=== PATIENT | female | born 1940 | race Caucasian/White ===

== ENCOUNTER → 2017-05-09 | Outpatient (CLI) | payer MEDICARE ==
--- NOTE | 2017-05-09 11:09 | REPMRS ---
Patient History The patient states she had a clinical breast exam in 04/2017. Patient is postmenopausal. Family history of breast cancer in mother at age 75 and breast cancer in maternal aunt at age 40. Benign stereotatic breast biopsy of the left breast. Taking unspecified hormones for 14 years. Digital Woman Screen Mammo: May 09, 2017 - Exam #: [id number] Bilateral CC and MLO view(s) were taken. Technologist: Leesa Cedeno, Technologist Prior study comparison: May 09, 2016, digital woman screen mammo performed at [facility]. May 01, 2015, digital woman screen mammo performed at [facility]. FINDINGS: There are scattered fibroglandular densities. There has been no change in the appearance of the mammogram from the prior studies. There is a mild amount of residual fibroglandular tissue which is fairly symmetric. There is no interval development of dominant mass, architectural distortion, or clustered microcalcification suggestive of malignancy. ASSESSMENT: BI-RADS/ACR category 1 mammogram. Negative. Recommendation Routine screening mammogram in 1 year (for women over age 40). This mammogram was interpreted with the aid of an FDA-approved computer-aided dectection system. Electronically Signed By: South Grewal MD 05/09/17 [id number]
== END ==
LOC: M WHC 09:32
PROVIDERS: ATTEND Nurse Practitioner Women's Health
DX: Z12.31 Encounter for screening mammogram for malignant neoplasm of breast (principal); Z78.0 Asymptomatic menopausal state; Z80.3 Family history of malignant neoplasm of breast; Z92.89 Personal history of other medical treatment

== ENCOUNTER → 2018-05-10 | Outpatient (CLI) | payer MEDICARE | LOC: M WHC 09:32 | DX: Z12.31 Encounter for screening mammogram for malignant neoplasm of breast (principal); Z78.0 Asymptomatic menopausal state; Z80.3 Family history of malignant neoplasm of breast; Z98.890 Other specified postprocedural states; Z92.29 Personal history of other drug therapy | CPT/HCPCS: 77067 ==

== ENCOUNTER → 2019-05-10 | Outpatient (CLI) | payer MEDICARE ==
--- NOTE | 2019-05-10 12:14 | REPMRS ---
Patient History The patient states she had a clinical breast exam in 04/2019. Family history of breast cancer at age 75 in mother, breast cancer at age 40 in maternal aunt. Benign stereotatic breast biopsy of the left breast. Took unspecified hormones for 14 years. 3D TOMOSYNTHESIS WAS PERFORMED. [facility] lifetime risk for breast cancer is 6.8%. Digital Woman Screen Mammo: May 10, 2019 - Exam #: [id number] Bilateral CC and MLO view(s) were taken. Technologist: Leesa Cedeno, Technologist Prior study comparison: May 10, 2018, bilateral digital woman screen mammo performed at [facility]. May 09, 2017, digital woman screen mammo performed at [facility]. FINDINGS: There are scattered fibroglandular densities. There has been no change in the appearance of the mammogram from the prior studies. There is a mild amount of residual fibroglandular tissue which is fairly symmetric. There is no interval development of dominant mass, architectural distortion, or clustered microcalcification suggestive of malignancy. Assessment: BI-RADS/ACR category 1 mammogram. Negative Mammogram. Recommendation Routine screening mammogram in 1 year (for women over age 40). This mammogram was interpreted with the aid of an FDA-approved computer-aided dectection system. Electronically Signed By: South Grewal MD 05/10/19 [id number]
== END ==
LOC: M WHC 10:39
PROVIDERS: ATTEND Nurse Practitioner Women's Health
DX: Z12.31 Encounter for screening mammogram for malignant neoplasm of breast (principal); Z80.3 Family history of malignant neoplasm of breast; Z86.018 Personal history of other benign neoplasm; Z92.29 Personal history of other drug therapy

== ENCOUNTER → 2020-05-11 | Outpatient (CLI) | payer MEDICARE ==
--- NOTE | 2020-05-12 09:50 | REPMRS ---
Patient History The patient states she had a clinical breast exam in April 2020.Family history of breast cancer at age 75 in mother, breast cancer at age 40 in maternal aunt. Benign stereotatic breast biopsy of the left breast. Took unspecified hormones for 14 years. Digital Woman Screen Mammo: May 11, 2020 - Exam #: [id number] Bilateral CC and MLO view(s) were taken. Technologist: Paloma Fraser, Technologist Prior study comparison: May 10, 2019, bilateral digital woman screen mammo performed at [facility]. May 10, 2018, bilateral digital woman screen mammo performed at [facility]. May 09, 2017, digital woman screen mammo performed at [facility]. FINDINGS: There are scattered fibroglandular densities. The Volpara volumetric breast density category is:B. There has been no change in the appearance of the mammogram from the prior studies. There is a mild amount of scattered fibroglandular density which is fairly symmetric. There is no interval development of dominant mass, architectural distortion, or grouped microcalcification suggestive of malignancy. 3-D tomosynthesis shows no additional findings. Assessment: BI-RADS/ACR category 1 mammogram. Negative Mammogram. Recommendation Routine screening mammogram of both breasts in 1 year (for women over age 40). This patient's Lifetime Breast Cancer Risk is estimated at 5.9 %. This mammogram was interpreted with the aid of an FDA-approved computer-aided dectection system. Electronically Signed By: Vick Tapia MD 05/12/20 [id number]
== END ==
LOC: M WHC 10:28
PROVIDERS: ATTEND Nurse Practitioner Women's Health
DX: Z12.31 Encounter for screening mammogram for malignant neoplasm of breast (principal); Z80.3 Family history of malignant neoplasm of breast; Z86.018 Personal history of other benign neoplasm; Z92.29 Personal history of other drug therapy

== ENCOUNTER → 2020-12-11 | Outpatient (CLI) | payer SELFPAY | LOC: M LABSMTC 10:13 | PROVIDERS: ATTEND Pediatrics | DX: Z20.822 Contact with and (suspected) exposure to COVID-19 (principal) ==

== ENCOUNTER → 2021-05-12 | Outpatient (CLI) | payer MEDICARE ==
--- NOTE | 2021-05-12 13:31 | REPMRS ---
Patient History The patient states she had a clinical breast exam in April 2021. Family history of breast cancer at age 75 in mother, breast cancer at age 40 in maternal aunt. Benign stereotatic breast biopsy of the left breast. Took unspecified hormones for 14 years. No breast complaints today Patient signed the MRS sheet 1st covid vaccine 12/29/20-left arm-Moderna 2nd covid vaccine 01/26/21-left arm Priors on PACS Patient Identification Verif Digital Woman Screen Mammo: May 12, 2021 - Exam #: [id number] Bilateral CC and MLO view(s) were taken. Technologist: Jacqui Olmos, Technologist Prior study comparison: May 11, 2020, bilateral digital woman screen mammo performed at [facility]. May 10, 2019, bilateral digital woman screen mammo performed at [facility]. May 10, 2018, bilateral digital woman screen mammo performed at [facility]. FINDINGS: There are scattered fibroglandular densities. The Volpara volumetric breast density category is:B. There is a 7 mm nodular opacity with possible spiculated margins projecting in the lateral aspect of the right breast on the CC view. This is not seen with confidence on the MLO view. This merits further evaluation. There has been no other change in the appearance of the mammogram from the prior studies. There is a mild amount of scattered fibroglandular density which is fairly symmetric. There is no other interval development of dominant mass, architectural distortion, or grouped microcalcification suggestive of malignancy. 3-D tomosynthesis shows no additional findings. Assessment: BI-RADS/ACR category 0 mammogram, Incomplete: Need additional imaging evaluation and/or prior mammograms for comparison. Recommendation Ultrasound and special view mammogram of the right breast. This patient's [facility] Lifetime Breast Cancer Risk is estimated at 5.0 %. This mammogram was interpreted with the aid of an FDA-approved computer-aided dectection system. Electronically Signed By: Vick Tapia MD 05/12/21 [id number]
== END ==
LOC: M WHC 10:45
PROVIDERS: ATTEND Nurse Practitioner Women's Health
DX: Z12.31 Encounter for screening mammogram for malignant neoplasm of breast (principal); Z80.3 Family history of malignant neoplasm of breast; Z86.018 Personal history of other benign neoplasm; Z92.29 Personal history of other drug therapy; N63.10 Unspecified lump in the right breast, unspecified quadrant

== ENCOUNTER → 2021-06-11 | Outpatient (CLI) | payer MEDICARE ==
--- NOTE | 2021-06-11 15:08 | REP ---
INDICATION: ADDITIONAL VIEWS RT BREAST; RIGHT BREAST ADD VIEWS. COMPARISON: Comparison mammography May 12, 2021, May 11, 2020, and May 10, 2019. TECHNIQUE: Magnified focal spot-compression CC MLO and true mL view images of the right breast are obtained. A true mediolateral 3D tomography is carried out and targeted right breast sonography is performed. This mammogram was interpreted with the aid of an FDA-approved computer-aided detection system. FINDINGS: Scattered fibroglandular elements are again seen mammographically. Diagnostic images of the right breast confirm the presence of a nodular lee ann density 6 mm in diameter in the retroareolar region of the anterior 3rd upper outer quadrant at approximately 9 to 10 o'clock position. This is best seen in the craniocaudal projection. The Volpara volumetric breast density pattern is B. Targeted ultrasound: Upper-outer quadrant right breast sonography is performed. 9:00 to 12:00 and retroareolar region. A 5 mm x 2 mm cyst is seen in the retroareolar region of the right breast however the this is not felt to correspond with the mammographic finding. No other sonographic abnormality. IMPRESSION: BIRADS/ACR category 4 suspicious right breast mammographic findings.. No ultrasound correlate for somewhat irregular nodular lee ann density 6 mm in diameter in the upper outer quadrant right breast anterior 3rd. This patient's [facility] lifetime breast cancer risk assessment score is 5.0%. RECOMMENDATION: Stereotactic needle biopsy of the right breast target is recommended with clip placement and post clip placement mammography.. The patient letter being requested is M4. <Electronically signed by Vick Tapia > 06/11/21 [id number]
== END ==
LOC: M WHC 08:19
PROVIDERS: ATTEND Nurse Practitioner Women's Health
DX: R92.8 Other abnormal and inconclusive findings on diagnostic imaging of breast (principal); N60.01 Solitary cyst of right breast
CPT/HCPCS: 76642; 77065; G0279

== ENCOUNTER → 2021-07-01 | Outpatient (CLI) | payer MEDICARE ==
[~2021-07-01] MED LIST: ECOT81TA5 PO; GLYB5TAB6 PO; LIPI20TA PO; LISI20TA33 PO; METF500T13 PO; OMEP10CASR PO; RANI15TA PO; VITAD400CA FT
[2021-07-01 13:57] VITALS: BP 150/76
--- NOTE | 2021-07-01 14:07 | REP ---
INDICATION: R92.8 AFN R BREAST/STEREO BX/CK CLIP PLMT. Marker clip placement views. COMPARISON: Comparison mammography May 12, 2021 and June 11, 2021. TECHNIQUE: Craniocaudal and mediolateral views of the right breast are obtained. FINDINGS: CC and mL views of the right breast demonstrate the needle biopsy marker clip in good position relative to the position of the nodular target on previous images. IMPRESSION: Marker clip in good position right breast. Post stereotactic needle biopsy images. <Electronically signed by Vick Tapia > 07/01/21 5041
--- NOTE | 2021-07-01 21:56 | REP ---
INDICATION: R92.8 AFN R BREAST/STEREO BX/CK CLIP PLMT. COMPARISON: None. TECHNIQUE: The procedure was performed under the direct supervision of Dr. Tapia. The patient has a history of a 6 mm nodular lee ann density in the retroareolar region of the anterior 3rd, upper outer quadrant of the right breast, seen on a previous mammogram dated 06/11/2021. The risks and benefits of the procedure were explained to the patient and informed consent was obtained. A craniocaudal approach was utilized. The nodule was localized using stereotactic mammographic guidance. 9 mL 1% Xylocaine was used as a local anesthetic. A 10 gauge, suction assisted Mammotome needle was inserted and 6 core biopsy samples were obtained. A marker clip(HydroMARK shape 3) was placed at the biopsy site. The patient tolerated the procedure well and there were no immediate complications. After the appropriate amount of monitored convalescence, the patient was discharged from the department. EBL: Less than 3 mL FINDINGS: None IMPRESSION: Stereotactic right breast biopsy with marker clip placement.(HydroMARK shape 3) <Electronically signed by Candido Castillo > 07/01/21 1622 <Electronically signed by Vick Tapia > 07/01/21 [id number]
== END ==
LOC: M WHCPRO 06:34
PROVIDERS: ATTEND Surgery
DX: D24.1 Benign neoplasm of right breast (principal); N63.11 Unspecified lump in the right breast, upper outer quadrant

== ENCOUNTER → 2021-08-06 | Outpatient (CLI) | payer MEDICARE | LOC: M WHC 11:41 | PROVIDERS: ATTEND Surgery | DX: R92.8 Other abnormal and inconclusive findings on diagnostic imaging of breast (principal); N63.20 Unspecified lump in the left breast, unspecified quadrant | CPT/HCPCS: 77065; G0279 ==

== ENCOUNTER → 2021-08-24 | Outpatient (CLI) | payer MEDICARE ==
[2021-08-24 13:57] VITALS: BP 124/72
--- NOTE | 2021-08-24 14:06 | REP ---
INDICATION: ABNORMAL RIGHT MAMMO 6 MM NODULE POST MAMMO FOR CLIP PLACMEN. Marker clip placement views. COMPARISON: Comparison is made with August 06, 2021 mammography. Also reviewed are July 01, 2021 and June 11, 2021 prior studies. TECHNIQUE: Craniocaudal and mediolateral oblique views of the right breast are obtained. FINDINGS: Cc and MLO views of the right breast obtained today demonstrate the newly placed marker clip in the nodular density in the lateral aspect of the right breast anterior 3rd. This is located approximately 3 cm lateral to the 1st clip which was placed previously. Today's clip is felt to be in good position relative to the target visible on the craniocaudal views from August 06, 2021 and June 11, 2021. No hematoma is visualized. IMPRESSION: Marker clip in good position. This mammogram was interpreted with the aid of an FDA-approved computer-aided detection system. <Electronically signed by Vick Tapia > 08/24/21 1410
--- NOTE | 2021-08-24 16:42 | REP ---
INDICATION: ABNORMAL RIGHT MAMMO 6 MM NODULE POST MAMMO FOR CLIP PLACMEN. COMPARISON: None. TECHNIQUE: The procedure was performed under the general supervision of Dr. Tapia. Patient has a history of a 6 mm, irregular, nodular lee ann density in the upper-outer quadrant of the right breast seen on a previous mammogram dated 06/11/2021. The patient had a stereotactic right breast biopsy of this lesion on 07/01/2021. Post biopsy mammogram demonstrated the needle biopsy marker clip to be in good position relative to the position of the nodule targeted on previous images. On a mammogram performed on 08/06/2021, the previously noted 6 mm irregular density is seen lateral to the position of the needle biopsy marker clip placed in the retroareolar region. This is seen only in the craniocaudal view which was the case previously. It is not definitely changed from the 09 May 2017 prior study. This area appeared less conspicuous on the 2018 and 2019 prior studies. In any event this nodular density does not appear to have been sampled. The patient is referred for re-biopsy. The risks and benefits of the procedure were explained to the patient and informed consent was obtained. A craniocaudal approach was utilized. The nodule was localized using stereotactic mammographic guidance. 10 mL 1% Xylocaine was used as a local anesthetic. A 10 gauge, suction assisted Mammotome needle was inserted and 6 core biopsy samples were obtained. Specimen a marker clip(HydroMARK shape 1) was placed at the biopsy site. The patient tolerated the procedure well and there were no immediate complications. After the appropriate amount of monitored convalescence, the patient was discharged from the department. EBL: Less than 3 mL FINDINGS: None IMPRESSION: Stereotactic right breast biopsy.(HydroMARK shape 1) <Electronically signed by Candido Castillo > 08/24/21 8010 <Electronically signed by Vick Tapia > 08/24/21 6571
== END ==
LOC: M WHCPRO 06:51
PROVIDERS: ATTEND Surgery
DX: N60.21 Fibroadenosis of right breast (principal)

== ENCOUNTER → 2022-01-31 | Outpatient (CLI) | payer MEDICARE | LOC: M WHC 09:40 | PROVIDERS: ATTEND Nurse Practitioner Women's Health | DX: R92.8 Other abnormal and inconclusive findings on diagnostic imaging of breast (principal) | CPT/HCPCS: 77065; G0279 ==

== ENCOUNTER → 2022-06-20 | Outpatient (CLI) | payer MEDICARE | LOC: M WHC 10:17 | PROVIDERS: ATTEND Nurse Practitioner Family | DX: Z12.31 Encounter for screening mammogram for malignant neoplasm of breast (principal) ==

== ENCOUNTER → 2023-10-17 | Outpatient (CLI) | payer MEDICARE | LOC: M WHC 10:49 | PROVIDERS: ATTEND Family Medicine | DX: Z12.31 Encounter for screening mammogram for malignant neoplasm of breast (principal); M85.89 Other specified disorders of bone density and structure, multiple sites ==

== ENCOUNTER 2024-08-02 19:04 | Inpatient (IN) | payer MEDICARE ==
[~2024-08-02] VITALS: Ht 157.5 cm; Wt 65.4 kg
[2024-08-02 19:53] LABS: VENOUS BASE EXCESS -16.1 (-2.0-2.0); VENOUS HCO3 12.6 MMOL/L (23.0-27.0); VENOUS O2 SATURATION 61.2 % (60.0-80.0); VENOUS PARTIAL PRESSURE O2 32.3 mmHg (30.0-50.0); VENOUS PH 7.117 UNITS (7.330-7.430); VENOUS STANDARD HCO3 11.8 MMOL/L; VENOUS TOTAL CO2 13.9 MMOL/L (24.0-28.0)
[2024-08-02 19:58] LABS: BASO % 0.2 % (0.0-1.0); HEMATOCRIT 35.4 % (36.0-47.0); HEMOGLOBIN 11.7 g/dl (12.0-15.5); LYMPH # 0.9 10^3/uL (1.5-5.0); LYMPH % 9.9 % (24.0-44.0); MEAN CORPUSCULAR HEMOGLOBIN 30.2 pg (27.0-33.0); MEAN CORPUSCULAR HGB CONC 33.1 g/dl (32.0-36.5); MEAN CORPUSCULAR VOLUME 91.2 fl (80.0-96.0); MONO # 0.5 10^3/uL (0.0-0.8); MONO % 5.6 % (2.0-8.0); NEUTROPHILS # 7.7 10^3/uL (1.5-8.5); PLATELET COUNT, AUTOMATED 327 10^3/uL (150-450); RED BLOOD COUNT 3.88 10^6/uL (4.00-5.40); WHITE BLOOD COUNT 9.2 10^3/uL (4.0-10.0)
[2024-08-02] MEDS: NS 1,000 ML IV SCH (20:03)
[2024-08-02 20:05] LABS: ALBUMIN 3.9 G/DL (3.2-5.2); BILIRUBIN,DIRECT 0.1 MG/DL (<0.4); BILIRUBIN,TOTAL 0.3 MG/DL (0.3-1.2); TOTAL PROTEIN 7.9 G/DL (5.7-8.2)
[2024-08-02 20:14] LABS: ACETONE/KETONE 1.32 MMOL/L (0.02-0.27)
[2024-08-02 20:41] LABS: HEMOGLOBIN A1c 6.6 % (4.0-6.0)
[2024-08-02 21:24] LABS: CALCIUM LEVEL 10.7 MG/DL (8.3-10.6); CREATININE FOR GFR 8.13 MG/DL (0.55-1.30); MAGNESIUM LEVEL 1.4 MG/DL (1.8-2.4); POTASSIUM SERUM 5.3 MMOL/L (3.5-5.1)
[2024-08-02] MEDS: SODIUM BICARBONATE 150 MEQ in D5W 1,000 ML IV SCH (21:35)
[2024-08-02] MEDS: DEXTROSE 50% 50ML SYRINGE IV STA (23:07)
[2024-08-02] MEDS ORDERED: OMEP-173 PO (23:09)
[2024-08-02] MEDS ORDERED: GLIP10TA6 PO (23:09)
[2024-08-02] MEDS ORDERED: METF-838 PO (23:09)
[2024-08-02] MEDS ORDERED: INVO100T PO (23:09)
[2024-08-02] MEDS ORDERED: BYDU2INJ7 INJ (23:09)
[2024-08-02] MEDS ORDERED: GLUC1TAB58 PO (23:12)
[2024-08-02] MEDS ORDERED: [UNRECOGNIZED DRUG - OTHER] PO (23:12)
[2024-08-02] MEDS ORDERED: CALTTAB6 PO (23:12)
[2024-08-02] MEDS ORDERED: ROSU20TA61 PO (23:28)
[2024-08-02] MEDS ORDERED: HOME MED LIST COMPLETE! XX SCH (23:30)
[2024-08-03] MEDS ORDERED: GLUCOSE 4 GM CHEW PO PRN (00:35)
[2024-08-03] MEDS ORDERED: GLUCAGON INJ 1MG VIAL SC PRN (00:35)
[2024-08-03 03:40] LABS: CALCIUM LEVEL 9.7 MG/DL (8.3-10.6); CREATININE FOR GFR 8.2 MG/DL (0.55-1.30); POTASSIUM SERUM 5.1 MMOL/L (3.5-5.1)
[2024-08-03] MEDS: DEXTROSE 50% 50ML SYRINGE IV PRN (05:29)
[2024-08-03 06:07] LABS: HEMOGLOBIN 10.3 g/dl (12.0-15.5); MEAN CORPUSCULAR HGB CONC 34.3 g/dl (32.0-36.5); MEAN CORPUSCULAR VOLUME 87.5 fl (80.0-96.0); PLATELET COUNT, AUTOMATED 264 10^3/uL (150-450); RED BLOOD COUNT 3.43 10^6/uL (4.00-5.40); WHITE BLOOD COUNT 9.7 10^3/uL (4.0-10.0)
[2024-08-03 06:46] LABS: CALCIUM LEVEL 9.3 MG/DL (8.3-10.6); CREATININE FOR GFR 8.31 MG/DL (0.55-1.30); GLOMERULAR FILTRATION RATE 4.9 (>32); MAGNESIUM LEVEL 1.2 MG/DL (1.8-2.4); POTASSIUM SERUM 4.7 MMOL/L (3.5-5.1)
[2024-08-03] MEDS: INSULIN LISPRO (NovoLOG) PER UNIT SC SCH ×2 (07:30→21:00)
[2024-08-03] MEDS: MAG SULF 1GM/100ML (MAG RUN) 1 GM in IV 1 EA IV SCH (08:18)
[2024-08-03] MEDS: SODIUM BICARBONATE 150 MEQ in D5W 1,000 ML IV SCH (09:19)
[2024-08-03] MEDS: HEPARIN SOD (PORCINE) 5000UNITS/ML 1ML VIAL/SYRINGE SC SCH (09:29)
[2024-08-03] MEDS: amLODIPine 5 MG TAB PO ONE (11:27)
[2024-08-03 13:11] LABS: ANTI-STREPTOLYSIN O QUANT 43.1 IU/ML (<195); COMPLEMENT C3 101.1 MG/DL (90.0-170.0); COMPLEMENT C4 28.7 MG/DL (12-36); RHEUMATOID FACTOR QUANT 7.9 IU/ML (<14)
[2024-08-03] MEDS: ACETAMINOPHEN TAB 650MG DOSE (2X325MG) PO PRN (17:43)
[2024-08-03 17:59] VITALS: BP 132/63; TEMP 98.8; O2SAT 96
[2024-08-03 19:52] VITALS: BP 113/55; TEMP 98.1; O2SAT 98
[2024-08-03 23:30] VITALS: BP 112/57; TEMP 98.8; O2SAT 95
[2024-08-04] VITALS (7 sets, daily range): BP systolic 132–157; BP diastolic 60–70; TEMP 97.4–99.3; O2SAT 94–97
[2024-08-04] MEDS: amLODIPine 5 MG TAB PO SCH (08:22)
[2024-08-04] MEDS: FLUBLOK(EGGFREE) TRIVAL(24-25) VACCINE PF 0.5ML SYRINGE 18YRS & OLDER IM.IMMUN ONE (09:00)
[2024-08-04 09:24] LABS: BASO % 0.5 % (0.0-1.0); EOS # 0.1 10^3/uL (0.0-0.5); EOS % 1.3 % (0.0-3.0); HEMATOCRIT 27.2 % (36.0-47.0); HEMOGLOBIN 9.6 g/dl (12.0-15.5); MEAN CORPUSCULAR HEMOGLOBIN 30.4 pg (27.0-33.0); MEAN CORPUSCULAR HGB CONC 35.3 g/dl (32.0-36.5); MEAN CORPUSCULAR VOLUME 86.1 fl (80.0-96.0); MONO # 0.8 10^3/uL (0.0-0.8); MONO % 9.7 % (2.0-8.0); NEUTROPHILS # 4.9 10^3/uL (1.5-8.5); NEUTROPHILS % 62.1 % (36.0-66.0); PLATELET COUNT, AUTOMATED 236 10^3/uL (150-450); RED BLOOD COUNT 3.16 10^6/uL (4.00-5.40); WHITE BLOOD COUNT 7.9 10^3/uL (4.0-10.0)
[2024-08-04] MEDS: NS 1,000 ML IV SCH (09:30)
[2024-08-04 10:19] LABS: CALCIUM LEVEL 8.4 MG/DL (8.3-10.6); CREATININE FOR GFR 8.88 MG/DL (0.55-1.30); GLOMERULAR FILTRATION RATE 4.5 (>32); POTASSIUM SERUM 3.9 MMOL/L (3.5-5.1)
[2024-08-04 11:27] LABS: PROTEIN, URINE AUTO TRACE mg/dL (NEGATIVE)
[2024-08-04 11:54] LABS: CREATININE,RANDOM URINE 22.7 MG/DL
[2024-08-05] VITALS (7 sets, daily range): BP systolic 137–176; BP diastolic 58–80; TEMP 97.5–98.8; O2SAT 94–97
[2024-08-05 08:06] LABS: BASO % 0.6 % (0.0-1.0); EOS # 0.1 10^3/uL (0.0-0.5); EOS % 2.1 % (0.0-3.0); HEMATOCRIT 26.2 % (36.0-47.0); HEMOGLOBIN 8.9 g/dl (12.0-15.5); LYMPH # 1.6 10^3/uL (1.5-5.0); MEAN CORPUSCULAR HEMOGLOBIN 30.1 pg (27.0-33.0); MEAN CORPUSCULAR VOLUME 88.5 fl (80.0-96.0); MONO # 0.8 10^3/uL (0.0-0.8); MONO % 11.4 % (2.0-8.0); NEUTROPHILS # 4.1 10^3/uL (1.5-8.5); NEUTROPHILS % 61.7 % (36.0-66.0); PLATELET COUNT, AUTOMATED 218 10^3/uL (150-450); RED BLOOD COUNT 2.96 10^6/uL (4.00-5.40); WHITE BLOOD COUNT 6.6 10^3/uL (4.0-10.0)
[2024-08-05 08:38] LABS: BLOOD UREA NITROGEN 65 MG/DL (9-23); CALCIUM LEVEL 8.1 MG/DL (8.3-10.6); CARBON DIOXIDE LEVEL 29 MMOL/L (20-31); CHLORIDE LEVEL 101 MMOL/L (98-107); CREATININE FOR GFR 9.04 MG/DL (0.55-1.30); GLOMERULAR FILTRATION RATE 4.4 (>32); GLUCOSE, FASTING 83 MG/DL (74-106); MAGNESIUM LEVEL 1.9 MG/DL (1.8-2.4); POTASSIUM SERUM 4.3 MMOL/L (3.5-5.1); SODIUM LEVEL 137 MMOL/L (136-145)
[2024-08-05] MEDS ORDERED: SODIUM CHLORIDE 0.9% 1000ML IV PRN (10:25)
[2024-08-05] MEDS ORDERED: HEPARIN 1,000UNITS/ML 10ML VIAL (FOR RADIOLOGY & DIALYSIS ONLY) IV PRN (10:25)
[2024-08-05 11:08] LABS: HEPATITIS B SURFACE ANTIBODY NEGATIVE (POSITIVE)
[2024-08-05 11:21] LABS: HEPATITIS B SURFACE ANTIGEN NEGATIVE (NEGATIVE)
[2024-08-05 11:42] LABS: HEPATITIS B CORE ANTIBODY IGM NEGATIVE (NEGATIVE); HEPATITIS C VIRUS ABY INDEX < 0.02 INDEX (<0.8)
[2024-08-05] MEDS: HEPARIN 1,000UNITS/ML 10ML VIAL (FOR RADIOLOGY & DIALYSIS ONLY) XX SCH (14:46)
[2024-08-06] VITALS (8 sets, daily range): BP systolic 131–163; BP diastolic 65–80; TEMP 97.6–99; O2SAT 96–99
[2024-08-06 00:08] LABS: PROTEIN, TOTAL SO 6.2 g/dL (6.1-8.1)
[2024-08-06 05:59] LABS: BASO % 0.4 % (0.0-1.0); EOS # 0.2 10^3/uL (0.0-0.5); EOS % 2.9 % (0.0-3.0); HEMOGLOBIN 9.8 g/dl (12.0-15.5); LYMPH # 1.3 10^3/uL (1.5-5.0); LYMPH % 18.7 % (24.0-44.0); MEAN CORPUSCULAR HEMOGLOBIN 30.1 pg (27.0-33.0); MEAN CORPUSCULAR HGB CONC 33.8 g/dl (32.0-36.5); MONO # 0.7 10^3/uL (0.0-0.8); MONO % 10.2 % (2.0-8.0); NEUTROPHILS # 4.7 10^3/uL (1.5-8.5); NEUTROPHILS % 67.5 % (36.0-66.0); PLATELET COUNT, AUTOMATED 229 10^3/uL (150-450); RED BLOOD COUNT 3.26 10^6/uL (4.00-5.40); WHITE BLOOD COUNT 6.9 10^3/uL (4.0-10.0)
[2024-08-06] MEDS ORDERED: SODIUM CHLORIDE 0.9% 1000ML IV PRN (06:00)
[2024-08-06] MEDS ORDERED: HEPARIN 1,000UNITS/ML 10ML VIAL (FOR RADIOLOGY & DIALYSIS ONLY) IV PRN (06:00)
[2024-08-06] MEDS ORDERED: LIDOCAINE 1% SDV 5ML VIAL SC PRN (06:00)
[2024-08-06 06:33] LABS: CALCIUM LEVEL 8.6 MG/DL (8.3-10.6); CREATININE FOR GFR 5.26 MG/DL (0.55-1.30); GLOMERULAR FILTRATION RATE 8.3 (>32); MAGNESIUM LEVEL 1.8 MG/DL (1.8-2.4)
[2024-08-06] MEDS: amLODIPine 5 MG TAB PO ONE (12:26)
[2024-08-06] MEDS: HEPARIN 1,000UNITS/ML 10ML VIAL (FOR RADIOLOGY & DIALYSIS ONLY) XX SCH (16:48)
[2024-08-07 03:18] VITALS: BP 123/63; TEMP 98.3; O2SAT 97
[2024-08-07 05:41] LABS: BASO % 0.5 % (0.0-1.0); EOS # 0.2 10^3/uL (0.0-0.5); EOS % 2.6 % (0.0-3.0); HEMATOCRIT 29.8 % (36.0-47.0); HEMOGLOBIN 9.9 g/dl (12.0-15.5); LYMPH # 1.5 10^3/uL (1.5-5.0); LYMPH % 25.1 % (24.0-44.0); MEAN CORPUSCULAR HEMOGLOBIN 30.1 pg (27.0-33.0); MEAN CORPUSCULAR HGB CONC 33.2 g/dl (32.0-36.5); MEAN CORPUSCULAR VOLUME 90.6 fl (80.0-96.0); MONO # 0.7 10^3/uL (0.0-0.8); MONO % 11.7 % (2.0-8.0); NEUTROPHILS # 3.6 10^3/uL (1.5-8.5); NEUTROPHILS % 59.8 % (36.0-66.0); PLATELET COUNT, AUTOMATED 248 10^3/uL (150-450); RED BLOOD COUNT 3.29 10^6/uL (4.00-5.40); WHITE BLOOD COUNT 6.1 10^3/uL (4.0-10.0)
[2024-08-07] MEDS ORDERED: HEPARIN 1,000UNITS/ML 10ML VIAL (FOR RADIOLOGY & DIALYSIS ONLY) IV PRN (06:00)
[2024-08-07] MEDS ORDERED: LIDOCAINE 1% SDV 5ML VIAL SC PRN (06:00)
[2024-08-07] MEDS ORDERED: SODIUM CHLORIDE 0.9% 1000ML IV PRN (06:00)
[2024-08-07 06:04] LABS: CALCIUM LEVEL 8.9 MG/DL (8.3-10.6); CREATININE FOR GFR 3.43 MG/DL (0.55-1.30); GLOMERULAR FILTRATION RATE 13.6 (>32); MAGNESIUM LEVEL 1.7 MG/DL (1.8-2.4); POTASSIUM SERUM 3.6 MMOL/L (3.5-5.1)
[2024-08-07 07:47] LABS: ALBUMIN SO 3.4 g/dL (3.8-4.8); ALPHA 1 GLOBULINS SO 0.3 g/dL (0.2-0.3); ALPHA 2 GLOBULINS SO 0.9 g/dL (0.5-0.9); BETA 2 GLOBULIN SO 0.4 g/dL (0.2-0.5); BETA GLOBULIN SO 0.4 g/dL (0.4-0.6); GAMMA GLOBULINS SO 0.9 g/dL (0.8-1.7)
[2024-08-07 08:22] LABS: ANA SCREEN, IFA NEGATIVE (NEGATIVE)
[2024-08-07] MEDS: HEPARIN 1,000UNITS/ML 10ML VIAL (FOR RADIOLOGY & DIALYSIS ONLY) XX SCH (09:43)
[2024-08-07] MEDS: MAG SULF 1GM/100ML (MAG RUN) 1 GM in IV 1 EA IV ONE (13:29)
[2024-08-07 13:37] VITALS: BP 123/60; TEMP 98.4; O2SAT 98
[2024-08-07 16:50] VITALS: BP 131/60; TEMP 97.6; O2SAT 95
[2024-08-07 20:19] VITALS: BP 107/60; TEMP 98.1; O2SAT 97
[2024-08-07 23:38] LABS: COMPLEMENT TOTAL (CH50) 50 U/mL (31-60)
[2024-08-07 23:41] VITALS: BP 136/81; TEMP 98; O2SAT 96
[2024-08-08 04:25] VITALS: BP 127/57; TEMP 98; O2SAT 97
[2024-08-08 06:58] LABS: BASO % 0.5 % (0.0-1.0); EOS # 0.2 10^3/uL (0.0-0.5); EOS % 3.3 % (0.0-3.0); HEMATOCRIT 30.8 % (36.0-47.0); HEMOGLOBIN 10.1 g/dl (12.0-15.5); LYMPH # 1.5 10^3/uL (1.5-5.0); LYMPH % 25.2 % (24.0-44.0); MEAN CORPUSCULAR HEMOGLOBIN 30.1 pg (27.0-33.0); MEAN CORPUSCULAR HGB CONC 32.8 g/dl (32.0-36.5); MEAN CORPUSCULAR VOLUME 91.9 fl (80.0-96.0); MONO # 0.6 10^3/uL (0.0-0.8); MONO % 10.5 % (2.0-8.0); NEUTROPHILS # 3.7 10^3/uL (1.5-8.5); NEUTROPHILS % 60.2 % (36.0-66.0); PLATELET COUNT, AUTOMATED 240 10^3/uL (150-450); RED BLOOD COUNT 3.35 10^6/uL (4.00-5.40); WHITE BLOOD COUNT 6.1 10^3/uL (4.0-10.0)
[2024-08-08 07:23] LABS: CALCIUM LEVEL 9.9 MG/DL (8.3-10.6); CREATININE FOR GFR 2.9 MG/DL (0.55-1.30); GLOMERULAR FILTRATION RATE 16.5 (>32); POTASSIUM SERUM 4.2 MMOL/L (3.5-5.1)
[2024-08-08 08:00] VITALS: BP 153/66; TEMP 97.7; O2SAT 96
[2024-08-08 15:36] VITALS: BP 121/56; TEMP 98; O2SAT 96
[2024-08-08 20:03] VITALS: BP 145/57; TEMP 97.7; O2SAT 96
[2024-08-09 00:59] VITALS: BP 129/82; TEMP 97.5
[2024-08-09 04:22] VITALS: BP 115/65; TEMP 97.9; O2SAT 96
[2024-08-09 06:33] LABS: BASO % 0.6 % (0.0-1.0); EOS # 0.2 10^3/uL (0.0-0.5); EOS % 2.5 % (0.0-3.0); HEMATOCRIT 28.1 % (36.0-47.0); HEMOGLOBIN 9.3 g/dl (12.0-15.5); LYMPH % 31.5 % (24.0-44.0); MEAN CORPUSCULAR HEMOGLOBIN 29.7 pg (27.0-33.0); MEAN CORPUSCULAR HGB CONC 33.1 g/dl (32.0-36.5); MEAN CORPUSCULAR VOLUME 89.8 fl (80.0-96.0); MONO # 0.6 10^3/uL (0.0-0.8); MONO % 9.8 % (2.0-8.0); NEUTROPHILS # 3.5 10^3/uL (1.5-8.5); NEUTROPHILS % 55.3 % (36.0-66.0); PLATELET COUNT, AUTOMATED 224 10^3/uL (150-450); RED BLOOD COUNT 3.13 10^6/uL (4.00-5.40); WHITE BLOOD COUNT 6.3 10^3/uL (4.0-10.0)
[2024-08-09 07:02] LABS: CALCIUM LEVEL 9.1 MG/DL (8.3-10.6); CREATININE FOR GFR 3.45 MG/DL (0.55-1.30); GLOMERULAR FILTRATION RATE 13.5 (>32); MAGNESIUM LEVEL 1.8 MG/DL (1.8-2.4); POTASSIUM SERUM 3.4 MMOL/L (3.5-5.1)
[2024-08-09] MEDS: POTASSIUM CHLORIDE 10MEQ SR TABLET PO ONE (08:10)
[2024-08-09 16:08] VITALS: BP 127/66; TEMP 97.7; O2SAT 96
[2024-08-09 20:30] VITALS: BP 133/68; TEMP 97.5; O2SAT 96
[2024-08-10 03:10] VITALS: BP 128/69; TEMP 97.7; O2SAT 99
[2024-08-10] MEDS ORDERED: SODIUM CHLORIDE 0.9% 1000ML IV PRN (06:25)
[2024-08-10] MEDS ORDERED: HEPARIN 1,000UNITS/ML 10ML VIAL (FOR RADIOLOGY & DIALYSIS ONLY) IV PRN (06:25)
[2024-08-10 06:53] LABS: BASO % 0.5 % (0.0-1.0); EOS # 0.2 10^3/uL (0.0-0.5); HEMATOCRIT 29.7 % (36.0-47.0); HEMOGLOBIN 9.8 g/dl (12.0-15.5); MEAN CORPUSCULAR HEMOGLOBIN 30.3 pg (27.0-33.0); MONO # 0.6 10^3/uL (0.0-0.8); MONO % 10.1 % (2.0-8.0); NEUTROPHILS # 3.1 10^3/uL (1.5-8.5); NEUTROPHILS % 52.1 % (36.0-66.0); PLATELET COUNT, AUTOMATED 260 10^3/uL (150-450); RED BLOOD COUNT 3.23 10^6/uL (4.00-5.40); WHITE BLOOD COUNT 5.9 10^3/uL (4.0-10.0)
[2024-08-10 07:10] LABS: CALCIUM LEVEL 9.7 MG/DL (8.3-10.6); CREATININE FOR GFR 3.46 MG/DL (0.55-1.30); GLOMERULAR FILTRATION RATE 13.5 (>32); MAGNESIUM LEVEL 1.8 MG/DL (1.8-2.4)
[2024-08-10] MEDS: HEPARIN 1,000UNITS/ML 10ML VIAL (FOR RADIOLOGY & DIALYSIS ONLY) XX SCH (08:47)
[2024-08-10 12:00] VITALS: BP 121/73; TEMP 96.8; O2SAT 98
[2024-08-10 20:00] VITALS: BP 124/72; TEMP 97.9; O2SAT 97
[2024-08-11 03:30] VITALS: BP 125/70; TEMP 97.5; O2SAT 98
[2024-08-11 04:00] VITALS: O2SAT 97
[2024-08-11 06:15] LABS: BASO % 0.4 % (0.0-1.0); EOS # 0.2 10^3/uL (0.0-0.5); EOS % 4.1 % (0.0-3.0); HEMOGLOBIN 8.9 g/dl (12.0-15.5); LYMPH # 1.7 10^3/uL (1.5-5.0); LYMPH % 35.5 % (24.0-44.0); MEAN CORPUSCULAR HEMOGLOBIN 30.1 pg (27.0-33.0); MEAN CORPUSCULAR VOLUME 91.2 fl (80.0-96.0); MONO # 0.5 10^3/uL (0.0-0.8); MONO % 10.1 % (2.0-8.0); NEUTROPHILS # 2.3 10^3/uL (1.5-8.5); NEUTROPHILS % 49.5 % (36.0-66.0); PLATELET COUNT, AUTOMATED 227 10^3/uL (150-450); RED BLOOD COUNT 2.96 10^6/uL (4.00-5.40); WHITE BLOOD COUNT 4.7 10^3/uL (4.0-10.0)
[2024-08-11 06:34] LABS: CALCIUM LEVEL 9.4 MG/DL (8.3-10.6); CREATININE FOR GFR 2.61 MG/DL (0.55-1.30); GLOMERULAR FILTRATION RATE 18.6 (>32); MAGNESIUM LEVEL 1.6 MG/DL (1.8-2.4); POTASSIUM SERUM 3.7 MMOL/L (3.5-5.1)
[2024-08-11] MEDS: MAG SULF 1GM/100ML (MAG RUN) 1 GM in IV 1 EA IV SCH (07:06)
[2024-08-11 11:48] VITALS: BP 128/74; TEMP 97.6; O2SAT 97
[2024-08-11 21:00] VITALS: BP 125/74; TEMP 97.9; O2SAT 92
[2024-08-11 23:52] LABS: ANCA SCREEN Negative (Negative)
[2024-08-12 03:50] VITALS: BP 131/75; TEMP 98.1; O2SAT 97
[2024-08-12 06:59] LABS: HEMATOCRIT 28.7 % (36.0-47.0); HEMOGLOBIN 9.3 g/dl (12.0-15.5); MEAN CORPUSCULAR HEMOGLOBIN 30.1 pg (27.0-33.0); MEAN CORPUSCULAR HGB CONC 32.4 g/dl (32.0-36.5); MEAN CORPUSCULAR VOLUME 92.9 fl (80.0-96.0); PLATELET COUNT, AUTOMATED 266 10^3/uL (150-450); RED BLOOD COUNT 3.09 10^6/uL (4.00-5.40)
[2024-08-12 07:20] LABS: CALCIUM LEVEL 9.7 MG/DL (8.3-10.6); CREATININE FOR GFR 2.76 MG/DL (0.55-1.30); GLOMERULAR FILTRATION RATE 17.5 (>32); PHOSPHORUS LEVEL 3.8 MG/DL (2.4-5.1); POTASSIUM SERUM 3.8 MMOL/L (3.5-5.1)
[2024-08-12 08:01] VITALS: BP 136/76
[2024-08-12] MEDS ORDERED: BLOOKIT21 XX (08:53)
[2024-08-12] MEDS ORDERED: GLUC1TES2 XX (08:53)
[2024-08-12] MEDS ORDERED: ALCOPAD25 TOP (08:53)
[2024-08-12] MEDS ORDERED: PEN-308 SC (08:53)
[2024-08-12] MEDS ORDERED: LANC30MI XX (08:53)
[2024-08-12] MEDS ORDERED: INSU100I20 SQ (08:53)
[2024-08-12 12:00] VITALS: BP 126/66; TEMP 97.9; O2SAT 97
[2024-08-12] MEDS: NEOSPORIN OINT 0.9 GM PKT TOP ONE (12:00)
== END 2024-08-12 14:39 | disposition home health service (06) | DRG 683 ==
LOC: M ED 19:04 → M ED INP 23:54 → M PCU 08-03 17:49 → M MSPAV 08-08 19:51
PROVIDERS: ADMIT Family Medicine; ATTEND Internal Medicine
PROC: B246ZZZ Ultrasonography of Right and Left Heart (ICD-10-PCS; principal; 2024-08-03)
PROC: 02HV33Z Insertion of Infusion Device into Superior Vena Cava, Percutaneous Approach (ICD-10-PCS; 2024-08-05)
PROC: 5A1D70Z Performance of Urinary Filtration, Intermittent, Less than 6 Hours Per Day (ICD-10-PCS; 2024-08-05)
DX: N17.0 Acute kidney failure with tubular necrosis (principal); E87.20 Acidosis, unspecified; E87.1 Hypo-osmolality and hyponatremia; E11.649 Type 2 diabetes mellitus with hypoglycemia without coma; E11.22 Type 2 diabetes mellitus with diabetic chronic kidney disease; N18.9 Chronic kidney disease, unspecified; I12.9 Hypertensive chronic kidney disease with stage 1 through stage 4 chronic kidney disease, or unspecified chronic kidney disease; E83.42 Hypomagnesemia; E83.52 Hypercalcemia; E78.5 Hyperlipidemia, unspecified; R19.7 Diarrhea, unspecified; K21.9 Gastro-esophageal reflux disease without esophagitis; Z79.84 Long term (current) use of oral hypoglycemic drugs; Z79.899 Other long term (current) drug therapy; E87.5 Hyperkalemia; Z90.49 Acquired absence of other specified parts of digestive tract; Z87.891 Personal history of nicotine dependence

== ENCOUNTER → 2024-10-25 | Outpatient (CLI) | payer MEDICARE ==
[~2024-10-25] MED LIST changes: +ALCOPAD25 TOP; +BLOOKIT21 XX; +BYDU2INJ7 INJ; +CALTTAB6 PO; +GLIP10TA15 PO; +GLUC1TAB58 PO; +GLUC1TES2 XX; +INSU100I20 SQ; +INVO100T PO; +LANC30MI XX; +METF-838 PO; +OMEP-173 PO; +PEN-308 SC; +ROSU20TA86 PO; +[UNRECOGNIZED DRUG - OTHER] PO
== END ==
LOC: M WHC 14:31
PROVIDERS: ATTEND Family Medicine
DX: Z12.31 Encounter for screening mammogram for malignant neoplasm of breast (principal); R92.313 Mammographic fatty tissue density, bilateral breasts

== ENCOUNTER → 2025-01-22 | Outpatient (REF) | payer MEDICARE ==
[2025-01-22 19:08] LABS: PERCENT SATURATION 29.4 % (13.2-45.0)
== END ==
LOC: M LAB REF 17:25
PROVIDERS: ATTEND Internal Medicine Nephrology
DX: D50.9 Iron deficiency anemia, unspecified (principal)